=== PATIENT | female | born 1975 | race Caucasian/White ===

== ENCOUNTER 2021-11-01 07:30 | Emergency (ER) | payer MEDICARE, MEDICAID ==
[~2021-11-01] VITALS: Ht 162.5 cm; Wt 92.9 kg
[~2021-11-01 07:30] MED LIST: ACHD5005 PO; ALPR.5T PO; BSP10T PO; CARV6.252 PO; CETI10TA17 PO; CLIN-144 PO; CLIN150C20; CLON1TAB13 PO; CYCL10TA9 PO; DOXY-13 PO; FLUT16SP22 NSEACH; FLUT1DIS26 IH; FURO-124 PO; FURO-125 PO; GABA100C PO; GBPN300C PO; GLIP10TA13 PO; HYDR-707 PO; HYDR1TAB PO; IBUP-30 PO; INSU100I10 SC; INSU100I10 SQ; INSU100V5 SQ; INSU100V6 SQ; LEVO500T69 PO; LISI10TA PO; LORA-404 PO; LORA0.5T PO; LOSA25TA5 PO; LOVA40TA2 PO; MAGN250T12 PO; MAGN400T29 PO; METF-399 PO; METO-333 PO; MONT-40 PO; MTF500T PO; NFMET1000 PO; NITR-65 PO; NORG1TAB15 PO; OLME1TAB18 PO; OMEP20CA18 PO; OMEP20TA33 PO; ONDA4TAB11; ONDA4TAB8 SL; PENI500T PO; PHEN200T27 PO; PHEN95TA30 PO; PNV1TABL81 PO; POTA-53 PO; PROP10TA8 PO; QUET100T33 PO; QUET25TA35 PO; RANI-613 PO; SERT-414 PO; SMTR6KT.5 SQ; SRTR100T PO; SULF1TAB38 PO; SUMA100T2 PO; TRAM-42 PO; VORT20TA PO; ZOLP10TA5 PO; ZOLP5TAB PO; [UNRECOGNIZED DRUG - OTHER]; [UNRECOGNIZED DRUG - OTHER] PO
[2021-11-01] MEDS ORDERED: ACETAMINOPHEN 500 MG TAB (TYLENOL) PO ONE (08:00)
--- NOTE | 2021-11-01 08:00 | ED Head Injury ---
General Chief Complaint: Trauma-Non Activation Stated Complaint: FALL - HIT HEAD Nursing Triage Note: PT TO RM BY WHEELCHAIR WITH COMPLAINT FALL AND HITTING HEAD. STATES SHE HAD FALLEN 3x. STATES HIT HEAD ON CAR THIS MORNING. PT IS [facility] Source: patient Exam Limitations: no limitations History of Present Illness Date Seen by Provider: Nov 01, 2021 Time Seen by Provider: 07:48 Initial Comments Patient is a 46-year-old female who appears much older than stated age chief complaint head injury this morning secondary to multiple falls since about 330 this morning. She has a history of heart disease with a pacemaker, end-stage renal disease on hemodialysis. She states getting up and around throughout the night she had several falls. She states she has felt like her left leg has been getting progressively weaker for the last 6 months. She has not seen her primary care physician about this. She has used a walker since about April of last year. She denies any numbness or tingling to the left lower extremity. She states that she feels a discomfort in her low back that feels like a warm and a pushing sensation. She occasionally takes Tylenol for her low back pain. No loss of bowel or bladder function. She makes limited amounts of urine. She states this morning as she was getting ready to go to hemodialysis she fell and hit her head on the car. No loss of consciousness. Complains of pain to the left upper parietal scalp area. Shortly after the fall she developed a left- sided headache that she rates at a "8-1/2". She has not taken any Tylenol for this morning. She states she has felt like she is having word finding difficulties this morning although her speech is clear, understandable, logical. She denies any other numbness weakness or tingling. No chest pain or shortness of breath. No nausea or vomiting. No vision changes. She has not checked her blood sugar this morning. All other review of systems reviewed and negative except as stated Occurred: this morning Severity: moderate Location: parietal (Left) Method of Injury: direct blow Loss of Consciousness: no loss of consciousness Associated Systoms: Headaches, Other (Chronic left leg weakness) Allergies and Home Medications Allergies Coded Allergies: simvastatin (Verified Allergy, Unknown, 11/01/21) tramadol (Verified Allergy, Unknown, 11/01/21) Patient Home Medication List Home Medication List Reviewed: Yes Carvedilol (Carvedilol) 6.25 Mg Tablet, 12.5 MG PO BID Prescribed by: CIARRA BAXTER on 05/24/15 0744 Cetirizine HCl (Cetirizine HCl) 10 Mg Tablet, 10 MG PO DAILY, (Reported) Entered as Reported by: CIPRIANO AUGUSTINE on 05/22/15 1031 Fluticasone Propionate (Fluticasone Propionate) 16 Gm [place].susp, 1 SPR NSEACH DAILY, (Reported) Entered as Reported by: CIPRIANO AUGUSTINE on 05/22/15 1044 Fluticasone/Salmeterol (Advair 250-50 Diskus) 1 Each Blst.w.dev, 1 PUFF IH BID, (Reported) Entered as Reported by: CIPRIANO AUGUSTINE on 05/22/15 104 Furosemide (Lasix) 40 Mg Tablet, 40 MG PO DAILY Prescribed by: CIARRA BAXTER on 05/24/15 07 Insulin Glargine,Hum.rec.anlog (Lantus Solostar) 100 Unit/1 Ml Insuln.pen, 20 UNITS SC HS, (Reported) Entered as Reported by: ROBE DELEON on 03/13/15 1431 Insulin Glargine,Hum.rec.anlog (Lantus Solostar) 100 Unit/1 Ml Insuln.pen, 20 UNIT SQ HS Prescribed by: BRANDI LEE on 03/28/16 204 Lorazepam (Lorazepam) 0.5 Mg Tablet, 0.5 MG PO TID, (Reported) Entered as Reported by: CIPRIANO AUGUSTINE on 05/22/15 1031 Lovastatin (Lovastatin) 40 Mg Tablet, 40 MG PO HS, (Reported) Entered as Reported by: SANJU JOSEPH on 03/13/15 1241 Metformin HCl (Metformin HCl) 1,000 Mg Tablet, 1,000 MG PO BID, (Reported) Entered as Reported by: CIPRIANO AUGUSTINE on 05/22/15 1047 Montelukast Sodium (Montelukast Sodium) 10 Mg Tablet, 10 MG PO HS, (Reported) Entered as Reported by: CIPRIANO AUGUSTINE on 05/22/15 1044 Norgestimate-Ethinyl Estradiol (Tri-Sprintec Tablet) 1 Each Tablet, 1 TAB PO DAILY, (Reported) Entered as Reported by: SANJU JOSEPH on 03/13/15 1241 Olmesartan/Hydrochlorothiazide (Benicar Hct 20-12.5 mg Tablet) 1 Each Tablet, 1 TAB PO DAILY, (Reported) Entered as Reported by: SANJU JOSEPH on 03/13/15 1241 Omeprazole (Omeprazole) 20 Mg Capsule.dr, 20 MG PO BID, (Reported) Entered as Reported by: CIPRIANO AUGUSTINE on 05/22/15 1044 Pnv No.122/Iron/Folic Acid ( Multi Tablet) 1 Each Tablet, 1 TAB PO DAILY, (Reported) Entered as Reported by: RAMÓN OHARA on 04/16/15 1352 Potassium Chloride (K-Tab ER) 20 Meq Tablet.er, 20 MEQ PO DAILY Prescribed by: CIARRA BAXTER on 05/24/15 0744 Vortioxetine Hydrobromide (Trintellix) 20 Mg Tablet, 20 MG PO HS, (Reported) Entered as Reported by: CIPRIANO AUGUSTINE on 05/22/15 1031 Zolpidem Tartrate (Zolpidem Tartrate) 10 Mg Tablet, 10 MG PO HS PRN for SLEEP, (Reported) Entered as Reported by: CIPRIANO AUGUSTINE on 05/22/15 1044 Review of Systems Review of Systems Constitutional: see HPI Eyes: No Symptoms Reported Ears, Nose, Mouth, Throat: no symptoms reported Respiratory: no symptoms reported Cardiovascular: no symptoms reported Gastrointestinal: no symptoms reported Genitourinary: no symptoms reported Musculoskeletal: back pain (Low back pain, diffuse lumbar), muscle weakness (Left leg) Skin: no symptoms reported Psychiatric/Neurological: Headache All Other Systems Reviewed Negative Unless Noted: Yes Past Nxcqbpk-Mbkywd-Cfqgol Hx Patient Social History Tobacco Use?: Yes Tobacco type used: Cigarettes Smoking Status: Current Everyday Smoker Use of E-Cig and/or Vaping dev: No Substance use?: No Alcohol Use?: No Pt feels they are or have been: No Immunizations Up To Date Tetanus Booster (TDap): More than 5yrs PED Vaccines UTD: Yes First/Initial COVID19 Vaccinat: 2020 Second COVID19 Vaccination Roberto: 2020 Seasonal Allergies Seasonal Allergies: No Past Medical History Abdominal, Appendectomy, Eye Surgery Currently Using CPAP: No Currently Using BIPAP: No High Cholesterol, Hypertension Reproductive Disorders: No Sexually Transmitted Disease: No HIV/AIDS: No Diabetes, Non-Insulin dep Loss of Vision: Denies Hearing Impairment: Denies Anxiety, PTSD, Depression Adverse Reaction/Blood Tranf: No Family Medical History Abdominal aortic aneurysm 19 FATHER Alzheimer's disease 19 FATHER Arthritis 19 MOTHER Cardiovascular disease 19 FATHER Completed stroke 19 FATHER Dementia 19 FATHER Diabetes mellitus 19 FATHER 19 MOTHER Gastroenteritis 19 FATHER Hypercholesterolemia 19 FATHER 19 MOTHER Hypertension 19 FATHER 19 MOTHER Kidney disease 19 FATHER Myocardial infarction 19 FATHER No Pertinent Family Hx, Asthma, Heart Disease, Cancer, CAD Under 55 Years Old, CAD Over 55 Years Old, COPD Physical Exam Vital Signs Vital Signs - First Documented 11/01/21 07:40 Temp 37.4 Pulse 96 Resp 16 B/P (MAP) 140/66 (90) Pulse Ox 92 O2 Delivery Room Air Capillary Refill : Height, Weight, BMI Height: 5'4" Weight: 190lbs. 4.6oz. [id number]; 35.00 BMI Method:Stated General Appearance: WD/WN, no apparent distress HEENT: PERRL/EOMI, normal ENT inspection, TMs normal (Right TM occluded by cerumen), other (No garcia sign) Neck: non-tender, full range of motion, supple, normal inspection Cardiovascular: regular rate, rhythm Respiratory: lungs clear, normal breath sounds, no respiratory distress, no accessory muscle use Gastrointestinal: non tender, soft Back: other (Diffuse lumbar tenderness, more tenderness to the left posterior superior iliac crest and medial upper left buttock) Extremities: normal range of motion, non-tender, normal inspection, no pedal edema, no calf tenderness Psychiatric: alert, oriented x 3 Crainal Nerves: normal hearing, normal speech, PERRL Motor/Sensory: no motor deficit (Left leg strength is equal to the right. She has 2+ patellar deep tendon reflexes bilaterally. Normal sensation in the lower extremities no drift in the left lower extremity it does seem that dorsiflexion of the left foot is slightly weaker at 4/5 compared to the right), other (Speech is clear) Skin: normal color, warm/dry Nicanor Coma Score Best Eye Response: (4) Open Spontaneously Best Verbal Response: (5) Oriented Best Motor Response: (6) Obeys Commands Progress/Results/Core Measures Results/Orders Lab Results Laboratory Tests Test 11/01/21 07:59 Range/Units Glucometer 153 H 70-110 MG/DL My Orders Orders - FLACA WEEMS MD Accucheck Stat ONCE (11/01/21 08:00) Ct Head Wo (11/01/21 08:00) Acetaminophen Tablet (Tylenol Tablet) (11/01/21 08:00) Medications Given in ED Current Medications Medications Dose Ordered Sig/Faith Route Start Time Stop Time Status Last Admin Dose Admin Acetaminophen 1,000 mg ONCE ONCE PO 11/01/21 08:00 11/01/21 08:01 DC 11/01/21 08:37 1,000 MG Vital Signs/I&O 11/01/21 07:40 Temp 37.4 Pulse 96 Resp 16 B/P (MAP) 140/66 (90) Pulse Ox 92 O2 Delivery Room Air Blood Pressure Mean: 90 Progress Progress Note : Time: 09:00 Progress Note relayed infirmation regarding CT scan of brain to patient and family. She is very upset about her 2 falls early this morning and frustrated with what to do. She called her PCP office and has an appointment with the [facility] on Thursday of next week. I offered a wheelchair prescription to help her with mobility and she and a family member she lives with declined. We talked about OTC pain relieving op tions such as tylenol, heat and cool patches and lidocaine. She states she is not having pain until she gets up and starts moving around. Again, neurologically normal exam at this time (except for pre-existing neuropathy complaints). No bowel of bladder incontinence or saddle anesthesia. I suspect she may have some type of lumbar nerve compression and recommended she talk to her [facility] about obtaining an MRI. All questions are sought and answered. Diagnostic Imaging Diagonstic Imaging: CT Comments [facility], [place] NAME: LOLI [facility]ARENA [facility] REC#: [id number] PT STATUS: REG ER : 1975 PHYSICIAN: FLACA WEEMS MD ADMIT DATE: 11/01/21/ER Draft Date of Exam:11/01/21 CT HEAD WO Clinical indication: Patient with severe headache. Patient fell hitting head x3. Patient has left leg weakness. Exam: Axial CT scan of the brain without IV contrast with coronal and sagittal reformatted images. Auto Exposure Controls were utilized during the CT exam to meet ALARA standards for radiation dose reduction. Comparison: CT scan of the head and cervical spine without contrast 04/01/2015. Findings: There is no evidence of acute cerebral infarct, intracranial hemorrhage, or gross mass effect. Stable small chronic infarct involving the left occipital lobe. The brain parenchymal volume appears appropriate for patient's age. There is normal parker-white matter distinction. There is no significant midline shift or herniation. There is no evidence of hydrocephalus. The basal cisterns are unremarkable. The skull, extracranial soft tissue, and orbits are unremarkable. The paranasal sinuses are unremarkable. Temporal bones show no significant abnormality. Impression: 1: There is no evidence of acute intracranial process. 2: Stable small chronic cerebral infarct involving left occipital lobe. Dictated on workstation # [id number] Dict: 11/01/21813 Trans: 11/01/21818 [id number] Interpreted by: MANNY HEATON MD Electronically signed by: Departure Impression Primary Impression: Minor head injury Qualified Codes: S09.90XA - Unspecified injury of head, initial encounter Additional Impressions: Headache Qualified Codes: R51.9 - Headache, unspecified Transient weakness of left leg Disposition: 01 HOME, SELF-CARE Condition: Stable Departure-Patient Inst. Decision time for Depature: 09:03 Referrals: NO,LOCAL PHYSICIAN (PCP/Family) Primary Care Physician Patient Instructions: Minor Head Injury, Adult ED Add. Discharge Instructions: Over the counter Tylenol extra strength 2 tablets every 6 hours to help prevent and treat headache and left low back pain. You can also try over the counter LIDOCAINE patches, creams - please follow packaging instructions. Keep your appointment with your Nurse Practitioner for Thursday and discuss possibly an MRI of your low back to help determine the cause of these intermittent falls related to leg weakness. Return to the Emergency Department for any new, emergent or concerning symptoms. FLACA WEEMS MD Nov 01, 2021 08:00
--- NOTE | 2021-11-01 08:19 | Diagnostic Imaging Report ---
Clinical indication: Patient with severe headache. Patient fell hitting head x3. Patient has left leg weakness. Exam: Axial CT scan of the brain without IV contrast with coronal and sagittal reformatted images. Auto Exposure Controls were utilized during the CT exam to meet ALARA standards for radiation dose reduction. Comparison: CT scan of the head and cervical spine without contrast 04/01/2015. Findings: There is no evidence of acute cerebral infarct, intracranial hemorrhage, or gross mass effect. Stable small chronic infarct involving the left occipital lobe. The brain parenchymal volume appears appropriate for patient's age. There is normal parker-white matter distinction. There is no significant midline shift or herniation. There is no evidence of hydrocephalus. The basal cisterns are unremarkable. The skull, extracranial soft tissue, and orbits are unremarkable. The paranasal sinuses are unremarkable. Temporal bones show no significant abnormality. Impression: 1: There is no evidence of acute intracranial process. 2: Stable small chronic cerebral infarct involving left occipital lobe. Dictated by: Dictated on workstation # [id number]
[2021-11-01 09:13] VITALS: BP 141/77
== END 2021-11-01 09:13 | disposition home or self-care (01) ==
LOC: EDUNIT# 07:30 → ER 07:32
DX: S09.90XA Unspecified injury of head, initial encounter (principal); R29.898 Other symptoms and signs involving the musculoskeletal system; M62.81 Muscle weakness (generalized); F17.210 Nicotine dependence, cigarettes, uncomplicated; W01.198A Fall on same level from slipping, tripping and stumbling with subsequent striking against other object, initial encounter
CPT/HCPCS: 70450; 82947